=== PATIENT | female | born 1985 | race American Indian/Alaskan Native ===

== ENCOUNTER 2018-06-10 22:36 | Outpatient (CLI) | payer MEDICAID ==
[2018-06-10 23:00] VITALS: BP 113/65
[2018-06-10] MEDS ORDERED: BRETHINE SUB-Q ONE (23:48)
[2018-06-10] MEDS ORDERED: LACTATED RINGERS 1,000 ML IV ONE (23:48)
== END 2018-06-11 02:27 | disposition home or self-care (01) ==
LOC: TRG 22:36
PROVIDERS: ATTEND Obstetrics & Gynecology
DX: O62.8 Other abnormalities of forces of labor (principal); Z3A.33 33 weeks gestation of pregnancy
CPT/HCPCS: J3105; J7120

== ENCOUNTER 2018-06-19 10:59 | Outpatient (CLI) | payer MEDICAID ==
[2018-06-19 11:13] VITALS: BP 118/80
--- NOTE | 2018-06-20 07:53 | Ultrasound Report ---
ULTRASOUND BIOPHYSICAL PROFILE: History: well being Technique: Transabdominal ultrasound with Doppler interrogation. 2 - breathing movements 2 - movements 2 - posture and tone 2 - Qualitative amniotic fluid volume 8 - TOTAL SCORE OF POSSIBLE 8 Heart Rate (bpm) 1.9
--- NOTE | 2018-06-20 07:55 | Ultrasound Report ---
ULTRASOUND OB LIMITED History: well being Technique: Transabdominal ultrasound with Doppler interrogation. Gestation: Single Position: Cephalic Amniotic Fluid: Normal JESSICA = 13.9 cm Heart Rate: 149 BPM
== END 2018-06-19 12:56 | disposition home or self-care (01) ==
LOC: TRG 10:59
PROVIDERS: ATTEND Obstetrics & Gynecology
DX: O47.03 False labor before 37 completed weeks of gestation, third trimester (principal); Z3A.34 34 weeks gestation of pregnancy
CPT/HCPCS: 59025; 76815; 76819

== ENCOUNTER 2018-06-27 14:35 | Outpatient (CLI) | payer MEDICAID ==
[2018-06-27 15:45] VITALS: BP 120/82
[2018-06-27] MEDS ORDERED: LACTATED RINGERS 500 ML IV ONE (15:47)
[2018-06-27 16:46] LABS: Bacteria,Urine 1+ /HPF (Negative); WBC,Urine < 1.0 /HPF (0.0-6.0)
[2018-06-27 16:51] LABS: Bilirubin,Urine Negative (Negative); Color,Urine Straw (Yellow)
[2018-06-27 16:52] LABS: Blood,Urine Negative (Negative); Protein,Urine <15 mg/dL mg/dL (Negative); Urobilinogen,Urine < 2.0 mg/dL (<2.0)
[2018-06-27] MEDS ORDERED: VISTARIL PO ONE (17:18)
== END 2018-06-27 18:03 | disposition home or self-care (01) ==
LOC: TRG 14:35
PROVIDERS: ATTEND Obstetrics & Gynecology
DX: O47.03 False labor before 37 completed weeks of gestation, third trimester (principal); Z3A.35 35 weeks gestation of pregnancy
CPT/HCPCS: 59025; 81001; 96360; J7120; Q0177

== ENCOUNTER 2018-07-12 03:47 | Inpatient (IN) | payer MEDICAID ==
[2018-07-12] MEDS ORDERED: LACTATED RINGERS 1,000 ML IV ONE (04:29)
--- NOTE | 2018-07-12 06:00 | Ultrasound Report ---
FINAL REPORT EXAM: US OB BPP WO NON-STRESS HISTORY: Non Reassurring Heart Tracing TECHNIQUE: A limited OB sonogram was obtained for evaluation of the biophysical profile. FINDINGS: For breathing movements, a score of 2 out of 2 was obtained. For movements, a score of 2 out of 2 was obtained. For posture in tone, a score of 2 out of 2 was obtained. For qualitative amniotic fluid volume, a score of 2 out of 2 was obtained. The total biophysical profile score is 8 out of 8. The heart rate is 130 BPM. IMPRESSION: Biophysical profile score is 8 out of 8. The heart rate is 130 BPM.
--- NOTE | 2018-07-12 06:01 | Ultrasound Report ---
FINAL REPORT EXAM: US OB LIMITED HISTORY: Non Reassurring Heart Tracing TECHNIQUE: A limited OB sonogram was obtained for evaluation of the amniotic fluid volume index. FINDINGS: The JESSICA is 10.7 centimeters which is within normal range. The heart rate is 130 BPM. A survey of organs was not obtained. IMPRESSION: JESSICA is 10.7 cm which is normal. The heart rate is 130 BPM.
[2018-07-12 07:13] LABS: Hematocrit 32.5 % (30.3-42.9); Hemoglobin 10.9 gm/dl (10.1-14.3); Mean Corpuscular HGB Conc 34 % (30-34); Mean Corpuscular Hemoglobin 27 pg (28-32); Mean Corpuscular Volume 81 fl (79-97); Platelet Count 221 K/mm3 (140-440); Red Cell Distribution Width 14.6 % (13.2-15.2)
--- NOTE | 2018-07-12 07:31 | History and Physical Report ---
History of Present Illness Date of examination: 07/12/18 Date of admission: 07/12/18 06:39 History of present illness: 33 yo LMP EDC 07/27/18 37.6 weeks gestation presented in early labor with nonreactive NST, however BPP 8/8. 4cm. second trimester entry into care at 16 weeks gestation. Transfer into care from [facility]. complicated by anemia QD. GBS negative. Past History Past Medical History: no pertinent history, other (anemia) Past Surgical History: no surgical history MEDICAL CONSULTANT History: abnormal PAP smear Family/Genetic History: none Social history: no significant social history, single - Obstetrical History Expected Date of Delivery: 07/27/18 Actual Gestation: 37 Week(s) 6 Day(s) : 1 Medications and Allergies Allergies Allergy/AdvReac Type Severity Reaction Status Date / Time No Known Allergies Allergy Unverified 06/10/18 23:48 Home Medications Medication Instructions Recorded Confirmed Last Taken Type Ferrous Sulfate [Iron] 1 tab PO DAILY 06/19/18 06/19/18 Unknown History Pnv No.95/Ferrous Fum/Folic AC 1 tab PO DAILY 06/19/18 06/19/18 Unknown History [ Vitamins Tablet] Review of Systems All systems: negative Genitourinary: normal appearance, contractions, no leakage of fluid - Vital Signs Vital signs: Vital Signs Pulse BP 75 120/78 07/12/18 03:59 07/12/18 03:59 Temp Pulse Resp BP Pulse Ox 98.2 F 75 18 120/78 07/12/18 04:00 07/12/18 04:00 07/12/18 04:00 07/12/18 04:00 - Obstetrical FHR: category 2 Uterine Contraction Monitor Mode: External Cervical Dilatation: 6 Cervical Effacement Percentage: 80 station: -1 Uterine Contraction Pattern: Irregular Uterine Tone Measurement Phase: Resting Uterine Contraction Intensity: Moderate Results Result Diagrams: 07/12/18 05:00 Abnormal lab results 07/12/18 Range/Units 05:00 MCH 27 L (28-32) pg All other labs normal. Assessment and Plan A: IUP at 37 weeks gestation Category 2 tracing, reassuring BPP Early labor P: Active Landry't induction
[2018-07-12] MEDS ORDERED: SUBLIMAZE IV PRN (07:58)
[2018-07-12] MEDS ORDERED: BRETHINE SUB-Q PRN (07:58)
[2018-07-12] MEDS ORDERED: STADOL IV PRN (07:58)
[2018-07-12] MEDS ORDERED: BRETHINE IVP PRN (07:58)
[2018-07-12] MEDS ORDERED: PITOCin/NS 30 UNIT/500ML 30 UNITS/500 ML BAG IV SCH ×2 (08:00)
[2018-07-12] MEDS ORDERED: PITOCin/NS 20 UNIT/1000ML DRIP 20 UNITS/1,000 ML BAG IV SCH (08:00)
[2018-07-12] MEDS ORDERED: LACTATED RINGERS 1,000 ML IV SCH (08:00)
[2018-07-12] MEDS ORDERED: XYLOCAINE 2% INFILTRATI ONE ×2 (09:00→14:00)
[2018-07-12] MEDS ORDERED: NARCAN 2 MG/2 ML IV PRN (11:34)
--- NOTE | 2018-07-12 11:34 | Anesthesia Consultation ---
Anesthesia Consult and Med Hx Date of service: 07/12/18 - Airway Anesthetic Teeth Evaluation: Good ROM Head & Neck: Adequate Mental/Hyoid Distance: Adequate Mallampati Class: Class II Intubation Access Assessment: Probably Good - Pre-Operative Health Status ASA Pre-Surgery Classification: ASA2 Proposed Anesthetic Plan: Epidural, Spinal - Pulmonary Hx Asthma: No COPD: No Hx Pneumonia: No - Cardiovascular System Hx Hypertension: No - Central Nervous System Hx Seizures: No Hx Psychiatric Problems: No - Endocrine Hx Renal Disease: No Hx End Stage Renal Disease: No Hx Hypothyroidism: No Hx Hyperthyroidism: No - Hematic Hx Anemia: No Hx Sickle Cell Disease: No - Other Systems Hx Alcohol Use: No
[2018-07-12] MEDS ORDERED: fentaNYL-BUPIV 2 MCG/ML-0.125% 200 MCG/100 ML BAG EPIDURAL SCH (12:00)
[2018-07-12] MEDS ORDERED: ZOFRAN ONE (14:05)
[2018-07-12] MEDS ORDERED: TORADOL IV ONE (14:14)
--- NOTE | 2018-07-12 14:20 | Procedure Note ---
OB Delivery Note - Delivery Date of Delivery: 07/12/18 (6-3oz male @ 1345) Surgeon: JOSHUA KWONG Estimated blood loss: 300cc - Vaginal Delivery presentation: vertex Delivery position: OA Intrapartum events: none Delivery induction: oxytocin Delivery augmentation: rupture of membranes Delivery monitor: external FHT, external uterine Route of delivery: Delivery placenta: spontaneous Delivery cord: 3 umbilical vessels Episiotomy: none Delivery laceration: 2nd degree Anesthesia: epidural - Infant A at 1 minute: 8 (Pushed for viable male . Placed skin to skin. Cord blood collected. Spont. placenta. Pitocin infusing. bleeding small. Fundus firm. 2nd degree laceration repaired as noted.) at 5 minutes: 9 Infant Gender: Male
[2018-07-12] MEDS ORDERED: PHENERGAN PR PRN (14:27)
[2018-07-12] MEDS ORDERED: ZOFRAN IV PRN (14:27)
[2018-07-12] MEDS ORDERED: BENADRYL PO PRN (14:27)
[2018-07-12] MEDS ORDERED: TYLENOL PO PRN (14:27)
[2018-07-12] MEDS ORDERED: TUCKS PAD TP PRN (14:27)
[2018-07-12] MEDS ORDERED: MILK OF MAGNESIA PO PRN (14:27)
[2018-07-12] MEDS ORDERED: DULCOLAX PR PRN (14:27)
[2018-07-12] MEDS ORDERED: LANSINOH TP PRN (14:27)
[2018-07-12] MEDS ORDERED: PHENERGAN PO PRN (14:27)
[2018-07-12] MEDS ORDERED: SODIUM CHLORIDE FLUSH SYRINGE 10 ML IV SCH (15:00)
[2018-07-12] MEDS: MOTRIN PO SCH ×2 (17:00→22:39)
[2018-07-12] MEDS ORDERED: MINERAL OIL PO PRN (22:00)
[2018-07-12] MEDS: FEOSOL PO SCH (22:39)
[2018-07-12] MEDS: NORCO 5/325 PO PRN (22:40)
[2018-07-13 04:35] LABS: Hematocrit 22.5 % (30.3-42.9); Hemoglobin 7.8 gm/dl (10.1-14.3)
[2018-07-13] MEDS: MOTRIN PO SCH ×2 (05:47→12:35)
[2018-07-13] MEDS: NORCO 5/325 PO PRN ×3 (05:47→19:45)
[2018-07-13] MEDS ORDERED: BOOSTRIX IM ONE (06:00)
[2018-07-13] MEDS: FEOSOL PO SCH ×2 (11:00→22:00)
[2018-07-13] MEDS: PRENATAL VITAMIN PO SCH (11:00)
[2018-07-13] MEDS: DERMOPLAST TP PRN (11:01)
--- NOTE | 2018-07-13 17:47 | Progress Note ---
Assessment and Plan A: PPD#1 s/p at term, Asymptomatic anemia P: Discharge home today per pt request. Subjective - Subjective Date of service: 07/13/18 Principal diagnosis: s/p at term Interval history: Pt without complaints. She requests discharge home this evening if possible. Patient reports: appetite normal, voiding normally, pain well controlled, ambulating normally : doing well Objective - Vital Signs Latest vital signs: Vital Signs Temp Pulse Resp BP BP Pulse Ox 07/13/18 17:36 97.7 F 82 20 109/71 100 07/13/18 12:00 98.3 F 71 20 101/50 98 07/13/18 07:29 98.6 F 72 16 99/54 98 07/13/18 00:53 98.5 F 80 18 97/53 07/12/18 21:45 98.5 F 80 16 102/54 Intake and Output 07/13/18 07/13/18 07/13/18 06:59 14:59 22:59 Intake Total 480 Output Total 800 Balance -320 Intake: Intake, Free Water 480 Output: Urine 800 Void 800 Other: Total, Output Amount 800 # Voids Void 1 - Exam Breasts: Present: deferred Cardiovascular: Present: Regular rate Lungs: Present: Clear to auscultation Abdomen: Present: soft Uterus: Present: fundal height below umbilicus Extremities: Present: normal - Labs Labs: Abnormal lab results 07/13/18 Range/Units 03:52 Hgb 7.8 L D (10.1-14.3) gm/dl Hct 22.5 L D (30.3-42.9) %
--- NOTE | 2018-07-13 17:47 | Discharge Summary ---
Providers - Providers Date of Admission: 07/12/18 06:39 Date of discharge: 07/13/18 Attending physician: PARKER SPANN MD Primary care physician: PARKER SPANN MD Hospitalization Reason for admission: active labor Delivery: Procedure details: Please see delivery note. Episiotomy: none Laceration: 2nd degree Other procedures: none complications: none Discharge diagnosis: IUP at term delivered baby: male Hospital course: Pt was admitted in active labor and went on to have a spontaneous vaginal delivery which she tolerated well. Her course was uncomplicated and she met discharge criteria on day #1 per her request. She will follow up in the office in 4 weeks with Liya Sanchez. Condition at discharge: Stable Disposition: DC-01 TO HOME OR SELFCARE - Discharge Diagnoses (1) Term of male Status: Acute (2) Anemia Status: Acute Qualifiers: Anemia type: unspecified type Qualified Code(s): D64.9 - Anemia, unspecified Plan - Discharge Medications Prescriptions: Docusate Sodium [Colace] 100 mg PO BID PRN #60 capsule PRN Reason: Constipation Ferrous Sulfate [Feosol 325 MG tab] 325 mg PO TID #90 tablet HYDROcodone/ACETAMINOPHEN [[place] 5-325 Tablet] 1 each PO Q6H PRN #20 tablet PRN Reason: Pain , Severe (7-10) Ibuprofen [Motrin] 800 mg PO Q8HR PRN #30 tablet PRN Reason: Pain, Moderate (4-6) - Provider Discharge Summary Activity: routine, no sex for 6 weeks, no heavy lifting 4 weeks, no strenuous exercise Diet: routine Instructions: routine Additional instructions: [] Smoking cessation referral if applicable(refer to patient education folder for contact #) [] Refer to [facility] Booklet Call your doctor immediately for: * Fever > 100.5 * Heavy vaginal bleeding ( >1 pad per hour) * Severe persistent headache * Shortness of breath * Reddened, hot, painful area to leg or breast * Drainage or odor from incision. * Keep incision clean and dry at all times and follow doctor's instructions regarding bathing/showering Please schedule circumcision before he is 4 weeks old. - Follow up plan Follow up: LIYA SANCHEZ CNM [Advanced Practice Nurse] - 08/09/18 (Please schedule appt )
[2018-07-14] MEDS: MOTRIN PO SCH ×5 (02:05→11:00)
[2018-07-14] MEDS: NORCO 5/325 PO PRN (07:40)
[2018-07-14 09:51] VITALS: BP 106/63
[2018-07-14] MEDS: PRENATAL VITAMIN PO SCH (11:00)
[2018-07-14] MEDS: FEOSOL PO SCH (11:00)
[2018-07-14] MEDS: DERMOPLAST TP PRN (11:00)
== END 2018-07-14 11:40 | disposition home or self-care (01) | DRG 775 ==
LOC: TRG 03:47 → LD 06:39 → OB 16:18
PROVIDERS: ADMIT Obstetrics & Gynecology; ATTEND Obstetrics & Gynecology
PROC: 10E0XZZ Delivery of Products of Conception, External Approach (ICD-10-PCS; principal; 2018-07-12)
PROC: 0KQM0ZZ Repair Perineum Muscle, Open Approach (ICD-10-PCS; 2018-07-12)
PROC: 3E033VJ Introduction of Other Hormone into Peripheral Vein, Percutaneous Approach (ICD-10-PCS; 2018-07-12)
PROC: 3E0R3BZ Introduction of Anesthetic Agent into Spinal Canal, Percutaneous Approach (ICD-10-PCS; 2018-07-12)
PROC: 00HU33Z Insertion of Infusion Device into Spinal Canal, Percutaneous Approach (ICD-10-PCS; 2018-07-12)
PROC: 3E0234Z Introduction of Serum, Toxoid and Vaccine into Muscle, Percutaneous Approach (ICD-10-PCS; 2018-07-13)
DX: O70.1 Second degree perineal laceration during delivery (principal); Z37.0 Single live birth; O90.81 Anemia of the puerperium; D64.9 Anemia, unspecified; Z3A.37 37 weeks gestation of pregnancy; Z23 Encounter for immunization
CPT/HCPCS: 36415; 76815; 76819; 85014; 85018; 85027; 86592; 86850; 86900; 86901; 90471; 90715; 99211; A6250; G0463; J1885; J2405; J2590; J3010; J7120